=== PATIENT | female | born 1960 | race Caucasian/White ===

== ENCOUNTER 2022-07-13 11:59 | Emergency (ER) | payer MEDICAID, SELFPAY ==
[2022-07-13 12:05] VITALS: BP 158/92
[2022-07-13 12:08] VITALS: BP 158/92; PULSE 71; RESP 18; TEMP 35.9; O2SAT 97; BMI 30.2
--- NOTE | 2022-07-13 12:35 | ED_ITS ---
HPI - General Adult General Chief complaint: Neuro Symptoms/Altered Deficit Stated complaint: Nausea, left arm numb Time Seen by Provider: 07/13/22 12:18 History of Present Illness HPI narrative: This 61-year-old female comes in reporting a brief episode of some mild chest discomfort and tingling in her left arm and leg. This occurred while she was doing some light activity. She did not have any vomiting but did have some nausea. She does not report any lightheadedness or shortness of breath. She states that she has good exercise tolerance and has not had symptoms like this in the past. She does report however chronic problems with her neck and back and has had MRI and injections to treat this. She does report episodes of symptoms radiating down her legs occasionally. She does not report any recent injury event. As for cardiac risk factors she does not have any personal medical history but does report her father having heart attack and stroke at a younger age. He was a smoker. The patient herself did not want to come in but her daughter was insistent that she come in to be evaluated for these symptoms that occurred today. Related Data Allergies Allergy/AdvReac Type Severity Reaction Status Date / Time No Known Drug Allergies Allergy Verified 07/13/22 12:15 Review of Systems Status of ROS: Reports: 10 or more systems reviewed and unremarkable except as noted in History and below Narrative: Constitutional: No fevers, no weight gain or loss. Eyes: No discharge. No vision changes. HENT: No congestion, no sore throat, no ear pain. Cardiovascular: No palpitations. Brief chest discomfort as described above. Respiratory: No shortness of breath, no wheezes, no cough. Gastrointestinal: No abdominal pain, no vomiting, no diarrhea. She did have some nausea upon awakening this morning. Genitourinary: No dysuria, no hematuria. Musculoskeletal: Normal range of motion. Skin: No rashes, no pruritis. Neurological: No dizziness, weakness, sensory change, speech change. Endo/Heme/Allergies: No bruising or bleeding. No polydipsia. Pysch: no suicidality, no anxiety, no insomnia. All other systems reviewed and are negative. [facility] Social History Smoking Status: Never smoker Do you use any of these nicotine containing products: None Second hand tobacco smoke exposure: No How often do you have a drink containing alcohol: never How often do you have six or more drinks on one occasion: Never AUDIT-C Alcohol total score: 0 Non-prescribed substance use: denies use Exam Narrative: Exam Narrative: Constitutional: Well-developed, well-nourished, no acute distress. HEENT: Normocephalic, atraumatic. Neck: Normal range of motion. Nontender. Supple. Spurling's test is negative. Heart: Regular. No murmurs. Normal rate. Intact distal pulses. Lungs: Clear to auscultation. No chest discomfort. No wheezes, rhonchi, or rales. Abdomen: Normal bowel sounds. Nontender. No rebound tenderness. Genitalia: Deferred. Back: No midline tenderness. Normal range of motion. Extremities: Normal range of motion. No injury. Skin: Intact. No rash. Warm. No erythema or pallor. Neurologic: No altered sensation. No weakness. Alert and oriented. [employer] strength is equal bilaterally. No facial asymmetry. Pronator drift is negative. Hpundg-ck-jple is normal. Heel to castelan is normal. Spurling's test is negative. Psychiatric: No suicidality. No anxiety or depression. No insomnia. Nursing notes and vitals signs are reviewed. Const: Vital Signs, click to edit/add: Vital Signs - 24 hr 07/13/22 12:08 07/13/22 12:41 07/13/22 13:30 Temperature 96.7 F L Pulse Rate [Apical ] 71 62 Pulse Rate [Left R adial] 76 Respiratory Rate 18 Blood Pressure [Ri ght Upper Arm] 158/92 H 145/80 H Pulse Oximetry 97 97 Oxygen Delivery Me thod Room Air Room Air 07/13/22 12:05 07/13/22 12:40 07/13/22 13:00 Temperature Pulse Rate [Apical ] 71 73 Pulse Rate [Left R adial] Respiratory Rate Blood Pressure [Ri ght Upper Arm] 158/92 H 142/83 H 146/75 H Pulse Oximetry 96 98 Oxygen Delivery Me thod Room Air Room Air Course Vital Signs Vital signs: Initial Vital Signs Blood Pressure 158/92 H 07/13/22 12:05 Blood Pressure Mean 114 07/13/22 12:05 Blood Pressure Position Supine 07/13/22 12:05 Vital Signs Blood Pressure 158/92 H 07/13/22 12:05 Temperature 96.7 F L 07/13/22 12:08 Pulse Rate 62 07/13/22 13:30 Respiratory Rate 18 07/13/22 12:08 Blood Pressure 145/80 H 07/13/22 13:30 Pulse Oximetry 97 07/13/22 13:30 Oxygen Delivery Method 07/13/22 13:30 Medical Decision Making MDM Narrative Medical decision making narrative: This patient comes in reporting an episode of some left arm and leg discomfort that was more like tingling and some chest discomfort on the left side that occurred this morning about 4 hours prior to arrival. She did have some nausea but no vomiting, lightheadedness, shortness of breath, or diaphoresis. She does not have any exercise intolerance. These symptoms occurred while doing very light activity. Currently she feels back to normal in every way. She does have chronic back pain and neck pain and is planning to follow-up with a automotive parts specialist. A hearing her signs and symptoms and considering her risk factors it seems more likely that this is a neurologic or musculoskeletal issue. Her EKG today shows normal sinus rhythm without any ST or T-wave abnormalities. She also has reassuring lab results with a troponin that is 0. I did discuss further testing options for her it with regard to her heart. In a process of shared decision making the patient wishes to go home and will follow-up with her primary physician and consider a stress test if symptoms are recurrent or more prominent. Lab Data Labs: Lab Results 07/13/22 07/13/22 07/13/22 Range/Units 12:35 12:49 12:49 WBC 4.94 (4.50-11.00) K/uL RBC 4.23 (4.00-5.20) m/uL Hgb 11.7 L (12.0-16.0) gm/dL Hct 35.9 (33.0-51.0) % MCV 85 (80-100) fL MCH 28 (26-34) pg MCHC 33 (32-36) gm/dL RDW Coeff of Moy 13.1 (11.5-15.5) % Plt Count 319 (140-440) K/uL Neut % (Auto) 54.9 (42.0-72.0) % Lymph % (Auto) 31.8 (20-44) % Emanuel % (Auto) 9.5 (0.0-11.0) % Eos % (Auto) 3.0 (0.0-7.0) % Baso % (Auto) 0.6 (0.0-3.0) % Neut # (Auto) 2.71 (1.7-7.0) K/uL Lymph # (Auto) 1.57 (0.90-2.90) K/uL Emanuel # (Auto) 0.50 (0.00-0.90) K/UL Eos # (Auto) 0.15 (0.00-0.50) K/uL Baso # (Auto) 0.03 (0.00-0.30) K/uL Abs Immat Gran (auto) 0.01 (0.00-0.30) K/uL Sodium 138 (135-149) mmol/L Potassium 3.7 (3.6-5.1) mmol/L Chloride 107 (96-114) mmol/L Carbon Dioxide 27 (20-32) mmol/L BUN 16 (7-30) mg/dL Creatinine 0.7 (0.5-1.5) mg/dL Estimated Creat Clear 68.44 Estimated GFR 100 ml/min Glucose 92 (60-115) mg/dL Calcium 8.9 (8.4-10.6) mg/dL POC Troponin I 0.00 L (0.01-0.04) ng/ml ECG Data Attestation: I personally reviewed and interpreted this ECG as follows: Interpretation: Normal sinus rhythm. Rate is 71 beats per minute. There are no ST or T-wave abnormalities. Discharge Plan Discharge Clinical Impression: Atypical chest pain, Arm paresthesia, left Condition: Improved Instructions: Chest Pain (ED) Additional Instructions: Continue current plans. Follow up with MD and consider a stress test. Return if recurrent or worsening symptoms happen. Follow Up/Referrals: Jessica Bray MD [Primary Care Provider] - Stand Alone Forms: [employer] Info Instructions
[2022-07-13 12:40] VITALS: BP 142/83; PULSE 71; O2SAT 96
[2022-07-13 12:41] VITALS: PULSE 76
[2022-07-13 12:56] LABS: Basophils Absolute Auto 0.03 K/uL (0.00-0.30); Basophils Percent Auto 0.6 % (0.0-3.0); Eosinophils Absolute Auto 0.15 K/uL (0.00-0.50); Hematocrit 35.9 % (33.0-51.0); Hemoglobin* 11.7 gm/dL (12.0-16.0); Immature Granulocytes Abs Auto 0.01 K/uL (0.00-0.30); Lymphocytes Absolute Auto 1.57 K/uL (0.90-2.90); Lymphocytes Percent Auto 31.8 % (20-44); Mean Corpuscular HGB Conc 33 gm/dL (32-36); Mean Corpuscular Hemoglobin 28 pg (26-34); Mean Corpuscular Volume 85 fL (80-100); Monocytes Percent Auto 9.5 % (0.0-11.0); Neutrophils Absolute Auto 2.71 K/uL (1.7-7.0); Neutrophils Percent Auto 54.9 % (42.0-72.0); Platelet Count* 319 K/uL (140-440); RDW Coefficient of Variation % 13.1 % (11.5-15.5); Red Blood Count 4.23 m/uL (4.00-5.20); White Blood Count* 4.94 K/uL (4.50-11.00)
[2022-07-13 12:59] LABS: Slide Review Reflex No
[2022-07-13 13:00] VITALS: BP 146/75; PULSE 73; O2SAT 98
[2022-07-13 13:09] LABS: Chloride* 107 mmol/L (96-114); Potassium* 3.7 mmol/L (3.6-5.1); Sodium* 138 mmol/L (135-149)
[2022-07-13 13:11] LABS: Creatinine* 0.7 mg/dL (0.5-1.5); Est. Creatinine Clearance* 68.44; Estimated Glomerular Filt Rate 100 ml/min
[2022-07-13 13:12] LABS: Blood Urea Nitrogen* 16 mg/dL (7-30); Calcium* 8.9 mg/dL (8.4-10.6); Carbon Dioxide* 27 mmol/L (20-32); Glucose* 92 mg/dL (60-115)
[2022-07-13 13:30] VITALS: BP 145/80; PULSE 62; O2SAT 97
== END 2022-07-13 13:57 | disposition home or self-care (01) ==
PROVIDERS: Emergency Provider Emergency Medicine Emergency Medical Services; PCP Family Medicine
DX: R07.9 Chest pain, unspecified (principal); R20.2 Paresthesia of skin
CPT/HCPCS: 36415; 80048; 84484; 85025; 93005; 99284; 99285

== ENCOUNTER 2022-08-15 12:07 | Outpatient (CLI) | payer MEDICAID, SELFPAY ==
[2022-08-15 13:45] VITALS: BP 143/83; PULSE 79
--- NOTE | 2022-08-15 14:09 | PM.ST ---
Stress Test Note Date Time Seen by Provider: : Date Seen: 08/15/22 Date of test: 08/15/22 Providers Referring provider: Jessica Bray Primary care provider: Jessica Bray Stress test physician: Khushboo Bergman Stress Test Note Stress test ordered: Stress Echo Indication for test: Chest pain Stress test medicine: None Results discussion: Resting EKG: Sinus rhythm, 74 beats per minute, poor R-wave progression in the anterior precordial leads. Some baseline artifact particularly in 1, aVL, lead 3. Resting blood pressure: 157/79 Stress test: Patient was exercised on the treadmill following standard [place] protocol. Patient was able to exercise to 5 minutes 44 seconds before reaching maximal exercise tolerance. She denies any significant shortness of breath or chest pain but just could no longer exercise. She achieves 7.1 Mets. She exercised to a maximum heart rate of 148 beats per minute which was 108% of a calculated target heart rate of 136. No significant ischemic changes, no arrhythmia. Calculated rate pressure product was 23,584. Impression: Subjectively negative, objectively negative EKG portion of this stress test. Follow up suggested: Await echo images to couple this for a full formal diagnostic report. Patient was discharged from this stress test in stable condition.
== END 2022-08-15 12:08 | disposition home or self-care (01) ==
PROVIDERS: PCP Family Medicine; Visit Provider Family Medicine
DX: R07.89 Other chest pain (principal)
CPT/HCPCS: 93016; 93325; 93351

== ENCOUNTER 2022-08-23 09:33 | Outpatient (CLI) | payer MEDICAID, SELFPAY ==
[2022-08-23 10:47] LABS: Cholesterol* 256 mg/dL (90-199)
[2022-08-23 10:48] LABS: HDL Cholesterol* 65 mg/dL (>=50); LDL Cholesterol Calculated 165 mg/dL (<100); Triglycerides* 129 mg/dL (40-149)
[2022-08-23 11:24] LABS: Iron* 82 ug/dL (37-170)
[2022-08-23 11:25] LABS: Ferritin* 17.9 ng/mL (11.1-264.0)
[2022-08-23 11:33] LABS: Percent Iron Saturation 21 % (20-50); Total Iron Binding Capacity 399 ug/dL (265-497)
[2022-08-23 11:39] LABS: Vitamin B12* 411 pg/mL (243-894)
== END 2022-08-23 09:34 | disposition home or self-care (01) ==
PROVIDERS: PCP Family Medicine; Visit Provider Family Medicine
DX: Z01.419 Encounter for gynecological examination (general) (routine) without abnormal findings (principal); D64.9 Anemia, unspecified; E78.5 Hyperlipidemia, unspecified
CPT/HCPCS: 80061; 82607; 82728; 83540; 83550

== ENCOUNTER 2022-10-17 09:56 | Outpatient (CLI) | payer MEDICAID, SELFPAY | END 2022-10-17 09:57 | disposition home or self-care (01) | LOC: INJ CL 09:56 | PROVIDERS: PCP Family Medicine; Visit Provider Family Medicine | DX: M54.16 Radiculopathy, lumbar region (principal); M48.062 Spinal stenosis, lumbar region with neurogenic claudication; M51.36 Other intervertebral disc degeneration, lumbar region | CPT/HCPCS: 62323; J0702; Q9966 ==

== ENCOUNTER 2022-11-06 10:13 | Outpatient (CLI) | payer MEDICAID, SELFPAY ==
[2022-11-06 12:30] LABS: Cholesterol* 184 mg/dL (90-199); Triglycerides* 77 mg/dL (40-149)
[2022-11-06 12:31] LABS: HDL Cholesterol* 75 mg/dL (>=50); LDL Cholesterol Calculated 94 mg/dL (<100)
== END 2022-11-06 10:14 | disposition home or self-care (01) ==
LOC: NFLDREF 10:45
PROVIDERS: PCP Family Medicine; Visit Provider Family Medicine
DX: E78.5 Hyperlipidemia, unspecified (principal)
CPT/HCPCS: 80061

== ENCOUNTER 2023-08-17 09:00 | Outpatient (CLI) | payer MEDICAID, SELFPAY | END 2023-08-17 09:01 | disposition home or self-care (01) | LOC: NFLDREF 08-21 11:08 | PROVIDERS: PCP Family Medicine; Referring Provider Family Medicine; Visit Provider Family Medicine | DX: E78.5 Hyperlipidemia, unspecified (principal); E55.9 Vitamin D deficiency, unspecified; Z13.9 Encounter for screening, unspecified | CPT/HCPCS: 80053; 80061; 82306 ==

== ENCOUNTER 2023-09-21 10:13 | Outpatient (CLI) | payer MEDICAID, SELFPAY ==
--- NOTE | 2023-09-21 10:54 | W.ANESCHARGE ---
Anesthesia Charges Start Date/Time Anesthesia Start Date: 09/21/23 Anesthesia Start Time: 10:49 Stop Date/Time Anesthesia Stop Date: 09/21/23 Anesthesia Stop Time: 11:11
--- NOTE | 2023-09-21 11:14 | W.ANESCHARGE ---
Anesthesia Charges Start Date/Time Anesthesia Start Date: 09/21/23 Anesthesia Start Time: 10:49 Stop Date/Time Anesthesia Stop Date: 09/21/23 Anesthesia Stop Time: 11:11
== END 2023-09-21 10:14 | disposition home or self-care (01) ==
LOC: OP CLINIC 10:13
PROVIDERS: PCP Family Medicine; Visit Provider Internal Medicine
DX: Z12.11 Encounter for screening for malignant neoplasm of colon (principal); K64.8 Other hemorrhoids
CPT/HCPCS: 00811; 00812; 45378; J2704

== ENCOUNTER 2023-10-30 07:20 | Outpatient (CLI) | payer MEDICAID, SELFPAY | END 2023-10-30 07:21 | disposition home or self-care (01) | LOC: NFLDREF 07:21 | PROVIDERS: PCP Family Medicine; Visit Provider Family Medicine | DX: R30.0 Dysuria (principal) | CPT/HCPCS: 87086; 87186 ==

== ENCOUNTER 2023-10-31 08:45 | Outpatient (CLI) | payer MEDICAID, SELFPAY ==
--- NOTE | 2023-10-31 09:15 | CRLHL7_ITS ---
For Patients: As a result of the Cures Act, medical imaging exams and procedure reports are released immediately into your electronic medical record. You may view this report before your referring provider. If you have questions, please contact your health care provider. BILATERAL SCREENING MAMMOGRAM WITH COMPUTER-AIDED DETECTION AND TOMOSYNTHESIS TECHNIQUE: CC and MLO views were obtained. These mammographic images have been obtained using full-field digital technique. These mammographic images were interpreted with the benefit of computer-aided detection. Breast Tomosynthesis was used in this interpretation. COMPARISON FILM: 07/27/20, 11/15/18, 12/27/12. FINDINGS: The breasts are almost entirely fatty IMPRESSION: There is no radiographic evidence for malignancy. ASSESSMENT: BI-RADS Category 1: Negative RECOMMENDATION: Routine screening mammogram in 1 year. A lay language report of this examination will be provided to the patient. Manish Villarreal M.D. Diagnostic Radiologist [email or web address] Transcribed: 6:47 p.mBryan mock/Dictated by: Manish Villarreal MD @ 10/31/2023 10:13:00 AM (Electronically Signed)
== END 2023-10-31 08:46 | disposition home or self-care (01) ==
LOC: MAMMO 08:46
PROVIDERS: PCP Family Medicine; Visit Provider Family Medicine
DX: Z12.31 Encounter for screening mammogram for malignant neoplasm of breast (principal)
CPT/HCPCS: 77063; 77067

== ENCOUNTER 2024-02-25 08:25 | Outpatient (CLI) | payer MEDICAID, SELFPAY | END 2024-02-25 08:26 | disposition home or self-care (01) | LOC: NFLDREF 02-27 07:20 | PROVIDERS: PCP Family Medicine; Referring Provider Family Medicine; Visit Provider Family Medicine | DX: Z79.1 Long term (current) use of non-steroidal anti-inflammatories (NSAID) (principal) | CPT/HCPCS: 80053 ==

== ENCOUNTER 2024-03-11 07:38 | Outpatient (CLI) | payer MEDICAID, SELFPAY ==
--- OUTSIDE RECORDS SUMMARY | 2024-03-11 07:40 | XMS_ITS | Clinical Summary ---
Author Name Unknown Organization [facility] Address [place], [place] [address] Care Team Providers Care Tree Trimmer Name Role Phone Jessica Bray MD Primary Care Provider + Allergies No known active allergies Medications Medication Sig Dispensed Refills Start Date End Date Status ibuprofen (ADVIL; MOTRIN) 800 mg tablet Take 800 mg by mouth three times daily with meals. 0 02/22/2017 Active rosuvastatin (CRESTOR) 5 mg tablet Take 5 mg by mouth once daily with evening meal. Active acetaminophen (TYLENOL EXTRA STRGTH) 500 mg tabletIndications:D DD (degenerative disc disease), lumbar Take 2 Tablets (1,000 mg) by mouth every 6 hours. Max acetaminophen dose: 4000mg in 24 hrs. 30 Tablet 12/13/2022 Active methocarbamoL (ROBAXIN) 750 mg tabletIndications:D DD (degenerative disc disease), lumbar Take 1 Tablet (750 mg) by mouth every 6 hours if needed for Muscle Spasm. 30 Tablet 12/13/2022 Active polyethylene glycoL (MIRALAX) 17 gram/scoop powderIndications:D DD (degenerative disc disease), lumbar Measure 17g in the cap provided and dissolve completely in 8 ounces of liquid as directed and take by mouth or nasogastric tube once daily if needed for Constipation. 510 g 12/13/2022 Active WalkerIndications:D DD (degenerative disc disease), lumbar Walker with front wheels for home use for 3 months. 1 Each 12/13/2022 Active FLUoxetine (PROZAC) 40 mg capsuleIndications: Episode of recurrent major depressive disorder, unspecified depression episode severity (HC) Take 1 Capsule (40 mg) by mouth once daily in the afternoon. Afternoon / early evening 12/13/2022 Active HYDROcodone-acetami nophen (10-325 mg/tablet)Indicatio ns:Lumbar radiculopathy Take 1 Tablet by mouth 4 times daily if needed for Pain. Max acetaminophen 4000mg in 24 hours. 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 1 Tablet 03/07/2024 Active Active Problems Problem Noted Date Diagnosed Date Lumbar disc herniation 12/07/2023 Lumbar radiculopathy 12/07/2023 Spinal stenosis, lumbar region with neurogenic c laudication 12/07/2023 Trochanteric bursitis of right hip 12/07/2023 Status post lumbar spine sammy lila for decompression of spinal nerves 12/07/2023 Hyperlipidemia 12/12/2022 DDD (degenerative disc disease), lumbar 04/20/20 Overview: ~ March 2017: L4-L5 [place] epidural steroid injection by Dr. Nation. Urinary tract infection 07/15/2012 Overview: Per report, seen by urology 2011 Tendonitis of wrist, left 07/15/2012 Major depressive disorder, recurrent episode, un specified 09/21/2010 Resolved Problems Problem Noted Date Diagnosed Date Resolved Date Major depressive disorder, s ryan episode, unspecified 07/22/2007 11/27/2011 Encounters Date Type Department Care Team Description 03/07/2024 Telephone [facility] [address] [place] [address] Davion Nation MD [facility] Meds 02/27/2024 Transcribe Orders [facility] [address] [place] [address] Davion Nation MD 02/08/2024 9:40 AM CDT Office Visit [facility] [address] [place] [address] Davion Nation MD Musculoskeletal Problem (Follow up back and hip pain review MRIs and discuss options) 02/08/2024 Travel 02/02/2024 Nurse Triage [facility] [address] [place] [address] Pcp, No Medication Management 01/31/2024 Nurse Triage [facility] [address] [place] [address] Davion Nation MD Questions 01/30/2024 Telephone [facility] [address] [place] [address] Davion Nation MD Results 01/29/2024 6:53 AM PURCHASING ADMINISTRATOR - 01/29/2024 11:59 PM PURCHASING ADMINISTRATOR Hospital Encounter [facility] [address] [place] [address] Davion Nation MD Status post lumbar spine surgery for decompression of spinal nerves; Lumbar radiculopathy; Lumbar foraminal stenosis; Trochanteric bursitis of right hip; Chronic right hip pain 01/29/2024 Travel 01/25/2024 10:00 AM PURCHASING ADMINISTRATOR Office Visit [facility] [address] [place] [address] Davion Nation MD Musculoskeletal Problem (Follow up back and bilateral hip/leg pain ) 01/25/2024 Travel from Last 3 Months Immunizations Name Administration Dates Next Due Tuberculin (PPD) 06/08/2014,03/23/2014 Family History Medical History Relation Name Comments Other Brother back Surg at 60 yo Arthritis Father back pain. Relation Name Status Comments Brother Father Social History Tobacco Use Types Packs/Day Years Used Date Smoking Tobacco: Never Smokeless Tobacco: Never Tobacco Cessation:Counseling Given: Yes Alcohol Use Standard Drinks/Week Comments Yes 0 (1 standard drink = 0.6 oz pur e alcohol) rare drink Social Connections Answer Date Recorded Frequency of Communication with Friends and Fami ly Not on file 07/27/2022 Sex and Gender Information Value Date Recorded Sex Assigned at Not on file Gender Identity Not on file Sexual Orientation Not on file Obstetrics History Last Filed Vital Signs Vital Sign Reading Time Taken Comments Blood Pressure 129/85 02/08/2024 9:43 AM CDT Pulse 92 02/08/2024 9:43 AM CDT Temperature 36.7 ??C (98 ??F) 02/08/2024 9:43 AM CDT Respiratory Rate 16 12/13/2022 3:56 PM PURCHASING ADMINISTRATOR Oxygen Saturation 98% 02/08/2024 9:43 AM CDT Inhaled Oxygen Concentration - - Weight 73.1 kg (161 lb 3.2 oz) 12/12/2022 6:33 A M PURCHASING ADMINISTRATOR Height 157.5 cm (5' 2) 12/12/2022 6:33 AM PURCHASING ADMINISTRATOR Body Mass Index 29.48 12/12/2022 6:33 AM PURCHASING ADMINISTRATOR Plan of Treatment Upcoming Encounters Date Type Department Care Team (Late st Contact Info) Description 03/11/2024 8:00 AM CDT Office Visit [facility] [address] [place] [address] Davion Nation MD [address] [place] [address] Health Maintenance Due Date Last Done Comments Tdap 1973 Depression screening for age 12+ 1974 HIV for age 15-65 1977 Hepatitis C screening for age 18-79 1980 Tetanus booster 1982 Colonoscopy through age 75 2007 Lipids for age 45-75 2007 Mammogram for age 45-75 2007 Zoster (shingles) series for age 50+ (1 of 2) 2012 BMI (ht and wt on same day) for age 18+ 04/10/2018 04/10/2017 COVID-19 vaccine series ( season) 2023 Influenza for age 50-64 07/27/2024 Pap test for age 21-65 09/06/2025 2, 09/06/2022, 06/26/2017, Additional history exists Pneumococcal series for age 6-64 Aged Out No longer eligible based on patient's age to complete this topic Procedures Procedure Name Priority Date/Time Associated Diagnosis Comments MR SPINE LUMBAR WWO Routine 01/29/2024 8:33 AM PURCHASING ADMINISTRATOR Status post lumbar spine surgery for decompression of spinal nerves Lumbar radiculopathy Lumbar foraminal stenosis MR HIP RIGHT WO Routine 01/29/2024 8:29 AM PURCHASING ADMINISTRATOR Trochanteric bursitis of right hip Chronic right hip pain HPV THIN PREP Routine 09/06/2022 7:30 AM CDT from Last 3 Months or Most Recently Relevant to Health Maintenance Results * MR SPINE LUMBAR WWO (01/29/2024 8:33 AM PURCHASING ADMINISTRATOR) Anatomical Region Laterality Modality Spine, LUMBAR SPINE Magnetic Res onance Narrative 01/29/2024 1:12 PM PURCHASING ADMINISTRATOR Indication: Lumbar radiculopathy. ??History of spine surgery. Comparison: None. Technique: Lumbar spine MRI with contrast. Findings: Accentuated lumbar lordosis. ??Mild dextroconvex lumbar scoliosis with apex at L2-3. ??Slight rightward lateral thesis of L3 on L4. ??Postsurgical changes of L4-5/L5-S1 laminectomies and right L4-5 foraminotomies. ??Thick enhancing granulation tissue within the surgical bed. ??No organized fluid collections. ??No acute fracture or marrow replacing process. ??Lower cord/conus and cauda equina nerve roots are normal. Discs/endplates: Advanced disc height loss/disc desiccation and endplate remodeling at L1 to centrally/on the left as well as L4-5 on the right. ?? Moderate disc height loss/disc desiccation L1-2. ??Minimal disc degeneration elsewhere. ??Type I reactive/discectomy changes at L4-5 on the right. T11-12 and T12-L1: No spinal canal or neuroforaminal stenosis. L1-2: Mild bilobed disc bulge. ??Bilateral low-grade facet arthrosis. ??Mild left neuroforaminal stenosis. ??No right neuroforaminal stenosis or spinal canal stenosis. L2-3: 4 mm retrolisthesis. ??Moderate disc bulge with overlying osteophytic ridging, asymmetric to the left. ??Bilateral facet arthrosis, greater on the left. ??Mild right and moderate left neuroforaminal stenosis. ??Mild spinal canal stenosis. L3-4: 4 mm anterior listhesis. ??Moderate bilobed disc bulge, asymmetric to the left. ??Bilateral facet arthrosis. ??Mild to moderate spinal canal stenosis, mild right and mild to moderate left neuroforaminal stenosis. L4-5: Postop changes. ??Spinal canal decompressed dorsally. ??High-grade right facet arthrosis. ??Moderate disc bulge with overlying osteophytic ridging, asymmetric to the right. ??Enhancement about the margins of the right facet as well as within the right subarticular recess and right neural foramen, compatible with granulation tissue related to foraminotomy/discectomy. ??Encasement and potential irritation of the exiting right L4 nerve root and traversing right L5 nerve root. ??Mild left and moderate right neuroforaminal stenosis. L5-S1: Postop changes. ??Spinal canal decompressed dorsally. ??Enhancing granulation tissue within the ventral epidural space with encasement and potential irritation of the traversing S1 nerve roots. SI joints: Bilateral arthrosis. Impression: 1. ??Postsurgical changes of relatively recent L4-5/L5-S1 decompressive laminectomies as well as a right L4-5 foraminotomy/discectomy. ??The spinal canal is patent at the operative levels. ??Thick enhancing granulation tissue within the right L4-5 subarticular recess, neural foramen as well as within the L5-S1 ventral epidural space encases and potentially irritates the exiting right L4 nerve root, traversing right L5 nerve root and traversing bilateral S1 nerve roots. ??There is moderate right L4-5 neuroforaminal stenosis. 2. ??At L2-3, moderate left neuroforaminal stenosis. 3. ??At L3-4, mild to moderate spinal canal stenosis and mild to moderate left neuroforaminal stenosis. Davion Nation MD MR * MR HIP RIGHT WO (01/29/2024 8:29 AM PURCHASING ADMINISTRATOR) Anatomical Region Laterality Modality HIPR Magnetic Resonan ce Narrative 01/30/2024 9:37 AM PURCHASING ADMINISTRATOR Indication: Right hip pain. ??Concern for labral tear. ??Back pain. Comparison: None. Technique: Axial, coronal and sagittal PD fat-sat small field right hip sequences with coronal T1 and PD fat-sat and axial T1 large field pelvis sequences. Findings: Right hip: Anatomic alignment without fracture, bone lesion or avascular necrosis. ??Mild heterogeneous T2 signal and irregular grade 2 thinning of cartilage with no significant secondary degenerative finding appreciated. ?? Within limitations of a nonarthrogram study, no significant labral tear is appreciated. ??Normal variant posterior sulcus. ??Some mucoid intermediate signal in the superior labrum. ??No periarticular fluid collection. ??Intact gluteal tendons at the trochanteric insertion with some mild patchy intermediate signal expansion and some surrounding edema for minimal tendinosis. ??Thin line of fluid in the trochanteric bursa. ??Intact hamstring. Pelvis: No left hip fracture or bone lesion. ??Small subchondral cyst at the acetabular superior outer margin. ??Physiologic fluid. ??Scoliosis suggested in the spine center to the right above the [id number]. ??Mild degenerative disc height loss and desiccation most pronounced L4-5, asymmetric to the right. ??Sacroiliac joints and the symphysis pubis appear normal. Impression: Minor degenerative chondromalacia right hip. ??Mild tendinosis and suturing gluteal tendons. ??Trace trochanteric bursitis. Davion Nation MD MR * HPV HIGH RISK (09/06/2022 7:30 AM CDT) TYPE 16 Negative Negative 09/08/2022 2:02 PM CDT [facility] TYPE 18 Negative Negative 09/08/2022 2:02 PM CDT [facility] OTHER HIGH RISK TYPES Negative Negative 09/08/2022 2:02 PM CDT [facility] Other (Cervical/Vagina l) 09/06/2022 7:30 AM CDT 09/07/2022 9:04 AM CDT Narrative [facility] - 09/08/2022 2:02 PM CDT HPV types 16, 18, 31, 33, 35, 39, 45, 51, 52, 56, 58, 59, 66 and 68 DNA were undetectable or below the pre-set threshold. Methodology: Libra Maia 4800 HPV Test Jessica Bray MD MICROBIOLOGY [facility] [address] [place] [address], from Last 3 Months or Most Recently Relevant to Health Maintenance Advance Directives Documents on File Type Date Recorded Patient Senior Bi Developer Expl anation Healthcare Directive 12/08/2022 023 * Full Code (Latest Code Status on File) Date Activated Date Inactivated Comments 12/12/2022 12:56 PM 12/13/2022 9:47 PM Question Answer Comments Code Status Discussion: Unable to Assess Preferences, Provider to review later * Full Code Date Activated Date Inactivated Comments 06/16/2015 8:00 AM 06/16/2015 10:57 AM * Full Code Date Activated Date Inactivated Comments 06/16/2015 6:32 AM 06/16/2015 8:00 AM Care Teams Tree Trimmer Relationship Specialty Start Date End Date Jessica Bray MD [address] [place] [address] PCP - General Family Practice 07/27/22
== END 2024-03-11 07:39 | disposition home or self-care (01) ==
LOC: INJ CL 07:38
PROVIDERS: PCP Family Medicine; Visit Provider Family Medicine
DX: M54.16 Radiculopathy, lumbar region (principal); M51.36 Other intervertebral disc degeneration, lumbar region
CPT/HCPCS: 64483; J1100; Q9966

== ENCOUNTER 2024-08-28 07:45 | Outpatient (CLI) | payer MEDICAID, SELFPAY ==
--- OUTSIDE RECORDS SUMMARY | 2024-08-29 08:59 | XMS_ITS | Continuity of Care Document ---
Author Organization [facility] Address [address] [place] [address] Phone Care Team Providers Care Photography Intern Name Role Phone Clarence GIL, PhD, [place] Unavailable Unavai lable Allergies, Adverse Reactions, Alerts Substance Reaction Status Criticality No Known Allergies Active No Inform ation Medications Medication Instructions Dosage Effective Dates (start - stop) Status Comments Medrol (Presley) 4 mg tablets in a dose pack take by Oral route as directed per package instructions - Active HYDROCODONE-ACETAMIN OPHEN (unknown strength) Not Available - Active ROSUVASTATIN CALCIUM (unknown strength) Not Available - Active IBUPROFEN (unknown strength) Not Available - Active FLUOXETINE HCL (unknown strength) Not Available - Active Procedures Procedure Date Postop Followup Visit TLIF - Includes PSF at the same level - PA HUFFMAN FACETC/FRMT ARTHRD LUM 1 Lami, Facetectomy/Foraminotomy, Lumbar ( Stenosis) Posterior Instrumentation, Non-segmental - PA PEEK/ Cage/ Implant, For Interbody Fusio n - PA Autograft, From Same Incision Pa Assist TLIF - Includes PSF at the same level Au HUFFMAN FACETC/FRMT ARTHRD LUM 1 Lami, Facetectomy/Foraminotomy, Lumbar ( Stenosis) Posterior Instrumentation, Non-segmental PEEK/ Cage/ Implant, For Interbody Fusio n Allograft, Morcelized, and/or BMP Autograft, From Same Incision Office/Outpatient Visit,Est, Mod 2023 Office/Outpatient Visit,Est, Mod 2023 Office/Outpatient Visit,Est, Mod 2023 Office/Outpatient Visit,Est, Low 2022 POSTOP FOLLOW-UP VISIT Telephone 2022 Postop Followup Visit Postop Followup Visit Lami, Facetectomy/Foraminotomy, Lumbar ( Stenosis) Lami, Facetectomy/Foraminotomy - Additio nal Level(s) OFFICE/OUTPATIENT VISIT EST Phone Office/Outpatient Visit,New, Mod 2021 Office/Outpatient Visit,New, Mod 2018 Advance Directives Directive Yes / No Effective Date File Name No Information Encounters Encounter Description Practice Location Reason(s) For Visit Diagnoses Date Provider Providers Copied on Encounter [facility], [address], [place], [id number], [place] tel:[phone] [facility] Encounter for other specified surgical aftercare 4 Clarence Rose. [facility], [address], [place], [address], [place]. tel:[phone] Referring Provider: Davion Zaldivar, [employer], [address]. tel:[phone] [facility], [address], [place], [id number], [place] tel:[phone] [facility] No Information 4 Clarence Rose. [facility], [address], [facility] [place], [address], [place]. tel:[phone] [facility], [address], [place], [id number], [place] tel:[phone] [facility] No Information 4 Harpal Sinclair. [facility], [address], [facility], [id number] , [place]. [phone] Referring Provider: Davion Zaldivar, [employer] [address], [place], [address]. tel:[phone] [facility], [address], [place], [id number], [place] tel:[phone] [facility] No Information 4 Clarence Rose. [facility], [address], [place], [address], [place]. [phone] Referring Provider: Davion Zaldivar, [employer] [address], [place], [address]. tel:[phone] Office/Outpat ient Visit,Est, Mod [facility], [address], [place], [id number], [place] tel:[phone] [facility] Spinal stenosis, lumbar region with neurogenic claudication 4 Clarence Rose. [facility], [address], [place], [address], [place]. [phone] Referring Provider: Davion Zaldivar, [employer] [address], [place], [address]. tel:[phone] Office/Outpat ient Visit,Est, Mod [facility], [address], [place], [place], [id number], [place] tel:[phone] [facility] Spinal stenosis, lumbar region with neurogenic claudication 4 Clarence Rose. [facility], [address], [place], [address], [place]. tel:[phone] Referring Provider: Daivon Zaldivar, [employer] [address], [place], [address]. tel:[phone] Office/Outpat ient Visit,Est, Mod [facility], [address], [place], [id number], [place] tel:[phone] [facility] Spinal stenosis, lumbar region with neurogenic claudication 4 Clarence [place]. [facility], [address], [place], [address], [place]. tel: [phone] Referring Provider: Davion Zaldivar, [employer] [address] [facility], [place], [address]. tel:[phone] Office/Outpat ient Visit,Est, Low [facility], [address], [place], [id number], [place] tel:[phone] [facility] Low back pain 3 Clarence Rose. [facility], [address], [place], [address], [place]. tel:[phone] Referring Provider: Davion Zaldivar [employer] [address] [facility], [place], [address]. tel:[phone] [facility], [address], [place], [place], [id number], [place] tel:[phone] [facility] No Information 3 Lima [place]. [facility], [address], [place], [address], [place]. tel:[phone] Referring Provider: [employer]sey [employer] [address] [facility], [place], [address]. tel:[phone] [facility], [address], [place], [id number], [place] tel:[phone] [facility] No Information 3 Clarence [place]. [facility], [address], [place], [address], [place]. tel:[phone] Referring Provider: Davion Zaldivar [employer] [address] [facility], [place], [address]. tel:[phone] [facility], [address], [place], [id number], [place] tel:[phone] [facility] No Information 3 Harpal Sinclair. [facility], [address], [place], [id number] , [place]. tel:[phone] Referring Provider: Davion Zaldivar, [employer] [address], [place], [address]. tel:[phone] [facility], [address], [place], [id number], [place] tel:[phone] [facility] No Information 3 Clarence Rose. [facility], [address], [place], [address], [place]. tel:[phone] Referring Provider: [employer] [address], [place], [address]. tel:[phone] OFFICE/OUTPAT IENT VISIT EST Phone [facility], [address], [place], [place], [id number], [place] tel:[phone] [facility] No Information 2 Clarence Rose. [facility], [address], [place], [address], [place]. tel:[phone] Referring Provider: [employer] [address], [place], [address]. tel:[phone] Office/Outpat ient Visit,New, Mod [facility], [address], [place], [id number], [place] tel:[phone] [facility] Spinal stenosis, lumbar region with neurogenic claudication 2 Clarence Rose. [facility], [address], [place], [address], [place]. tel:[phone] Ref[facility]: [facility] [address], [place], [address]. tel:[phone] Office/Outpat ient Visit,New, Dejan [facility], [address], [place], [id number], [place] tel:[phone] [facility] Spinal stenosis of lumbosacral region 9 Harpal Yahir. [facility], [address], [place], [place], [id number] , [place]. tel:[phone] Referring Provider: Jessica Cowan, [facility] [address] [place], [address]. tel:[phone] [facility], [address], [place], [id number], [place] tel:[phone] [facility] Low back pain 9 Clarence Rose. [facility], [address], [place], [address], [place]. tel:[phone] Family History Family Member Type Diagnosis Age At Onset No Information Payers Payer name Insurance type Covered libertarian ID Sam samuellelia(s) Екатеринаmartha [facility] 2021 CI [id number] Social History Type Description Quantity Date Captured Comments Alcohol Use Details Unknown Caffeine Use Details Unknown Tobacco Use Status Current non-smoker Smoking Status Never smoker Non-Smoking Tobacco Use Details : No Details Available : No Details Available Sex Female Vital Signs Date / Time: Height Weight BMI Pulse Rate Blood Pressure Temperature Respiratory Rate Body Surface Area Head Circumference Head Circ. Percentile Wt./William. Percentile BMI percentile Pulse Ox Inhaled Ox 11:10 AM 61.81 in 70.307 kg (155.00 lbs) 28.5 2 kg/m eter (2) Chief Complaint And Reason For Visit No Information Reason For Referral Reason For Referral No Information Plan Of Treatment Date Type Action Status Appointment Karin Cummins BOOKED Appointment Karin Cummins BOOKED Future Order: Radiology Order Me dial Branch Block Lumbar ([id number]), Ordered on: Ordered History Of Present Illness Encounter Date Complaint History Of Prese nt Illness No Information Functional Status Date Functional Assessmen t No Information Instructions Date Instruction Additional Infor mation No Information Assessments Type Assessment Date assessment Encounter for other specified devine rgical aftercare Patient Care Teams Name Effective Dates (start - stop) Status Members No Information
--- OUTSIDE RECORDS SUMMARY | 2024-08-29 09:00 | XMS_ITS | Clinical Summary ---
Author Organization [facility] Address [place], [place] [address] Care Team Providers Care Guest Room Attendant Name Role Phone Jessica Bray MD Primary Care Provider + Allergies No known active allergies Medications Medication Sig Dispensed Refills Start Date End Date Status rosuvastatin (CRESTOR) 5 mg tablet Take 5 mg by mouth once daily with evening meal. Active FLUoxetine (PROZAC) 40 mg capsuleIndications :Episode of recurrent major depressive disorder, unspecified depression episode severity (HC) Take 1 Capsule (40 mg) by mouth once daily in the afternoon. Afternoon / early evening 12/13/2022 Active Cholecalciferol, Vitamin D3, (Vitamin D-3) 400 unit capsule Take 400 units by mouth once daily. Active calcium carbonate CHEWABLE (Calcium Antacid) 400 mg calcium (1,000 mg) chew Chew 1,000 mg by mouth once daily. Active acetaminophen (TYLENOL EXTRA STRGTH) 500 mg tabletIndications: Acute post-operative pain Take 2 Tablets (1,000 mg) by mouth every 6 hours if needed for Pain. Max acetaminophen dose: 4000mg in 24 hrs. 07/10/2024 Active oxyCODONE (ROXICODONE) 5 mg immediate release tabletIndications: Acute post-operative pain Take 1-2 Tablets (5-10 mg) by mouth every 4 hours if needed for severe pain. 45 Tablet 07/10/2024 Active sennosides-docusat e (SENOKOT S) (8.6-50 mg) tabletIndications: Acute post-operative pain Take 1-4 Tablets by mouth two times daily. 30 Tablet 07/10/2024 Active methocarbamoL (ROBAXIN) 500 mg tabletIndications: Acute post-operative pain Take 1 Tablet (500 mg) by mouth every 6 hours. 30 Tablet 07/10/2024 Active lidocaine 4 % topical patchIndications:A cute post-operative pain Apply one layer to intact skin to cover most painful area for max 12hr per 24hr period. Do not put on incision- this can lead to infection. 14 Patch 07/11/2024 Active WalkerIndications: Spondylolisthesis of lumbar region Walker with front wheels for home use for 3 months. 1 Each 07/10/2024 Active Active Problems Problem Noted Date Diagnosed Date Spondylolisthesis of lumbar region 07/08/2024 Lumbar disc herniation 12/07/2023 Lumbar radiculopathy 12/07/2023 Spinal stenosis, lumbar region with neurogenic c laudication 12/07/2023 Trochanteric bursitis of right hip 12/07/2023 Status post lumbar spine sammy lila for decompression of spinal nerves 12/07/2023 Hyperlipidemia 12/12/2022 DDD (degenerative disc disease), lumbar 04/20/20 Overview (04/20/2017): ~ March 2017: L4-L5 [place] epidural steroid injection by Dr. Nation. Urinary tract infection 07/15/2012 Overview (07/15/2012): Per report, seen by urology 2011 Tendonitis of wrist, left 07/15/2012 Major depressive disorder, recurrent episode, un specified 09/21/2010 Resolved Problems Problem Noted Date Diagnosed Date Resolved Date Major depressive disorder, s ryan episode, unspecified 07/22/2007 11/27/2011 Encounters Date Type Department Care Team Description 07/08/2024 10:51 AM CDT Anesthesia Event [facility] [address] [place] [address] Antolin Todd MD Desa, Tenzin, MD 07/08/2024 9:00 AM CDT - 07/08/2024 2:06 PM CDT Surgery [facility] [address] [place] [address] Milton Lima MD Posterior Spine Fusion L4 to: L5 Transforaminal Lumbar Interbody Fusion L4 to: L5 Decompression - Revision L4 to: L5 Right Decompression - Lateral recess L3 to: L4 Right Instrumentation and Bone Graft Autograft, allograft 07/08/2024 7:13 AM CDT - 07/10/2024 4:30 PM CDT Hospital Encounter [facility] [address] [place] [address] Milton Lima MD Acute post-operative pain (Primary Dx); Spondylolisthesis of lumbar region Discharge Disposition: Home Self Care 07/07/2024 Travel from Last 3 Months Immunizations Name [...] of Communication with Friends and Fami ly 0 07/10/2024 Financial Resource Strain Answer Date R ecorded Difficulty of Paying Living Expenses 3 07/10/2024 Difficulty of Paying Living Expenses Not on file 07/10/2024 Food Insecurity Answer Date Recorded Worried About Running Out of Food in the Last Ye ar 1 07/10/2024 Transportation Needs Answer Date Record ed Lack of Transportation (Medical) 1 07/10/2024 Housing Stability Answer Date Recorded Unable to Pay for Housing in the Last Year 1 07/10/2024 Sex and Gender Information Value Date Recorded Sex Assigned at Not on file Gender Identity Not on file Sexual Orientation Not on file Obstetrics History Last Filed Vital Signs Vital Sign Reading Time Taken Comments Blood Pressure 137/74 07/10/2024 8:51 AM CDT Pulse 85 07/10/2024 8:51 AM CDT Temperature 36.6 ??C (97.9 ??F) 07/10/2024 8:51 AM CD T Respiratory Rate 16 07/10/2024 8:51 AM CDT Oxygen Saturation 99% 07/10/2024 8:51 AM CDT Inhaled Oxygen Concentration - - Weight 75.3 kg (166 lb) 07/08/2024 8:15 AM CDT Height 157.5 cm (5' 2) 07/08/2024 8:15 AM CDT Body Mass Index 30.36 07/08/2024 8:15 AM CDT Plan of Treatment Health Maintenance Due Date Last Done Comments [...] age 18+ 04/10/2018 04/10/2017 COVID-19 vaccine series (2023- season) 2024 Influenza for age 50-64 07/27/2024 Pap test for age 21-65 09/06/2025 2, 09/06/2022, 06/26/2017, Additional history exists Pneumococcal series for age 6-64 Aged Out No longer eligible based on patient's age to complete this topic Medical Devices Implanted Type Area Industrial Coffee Grinder Device Identifier Shelf Expiration Date Model / Serial / Lot Bone 1-4mm 60cc Medtronic Fine Canclls Freeze Dried - [id number] Implanted:Qty: 1 on 07/08/2024 by Milton Lima MD at [facility] Medtronic Spine/Ortho [id number] 06/14/2028 [id number] / [id number] / Spacer Lmbr 9x22mm Capstone Tlif Titnm Coating - [id number] Implanted:Qty: 1 on 07/08/2024 by Milton Lima MD at [facility] N/A: Spine Medtronic Spine/Ortho [id number] / / 10PM Set Screw Lmbr Ant 5.5mm Solera Break Off - [id number] Implanted:Qty: 4 on 07/08/2024 by Milton Lima MD at [facility] N/A: Spine Medtronic Spine/Ortho [id number] / / Derek Lmbr 30x5.5mm Solera 5.5/6 Cvd Titnm - [id number] Implanted:Qty: 2 on 07/08/2024 by Milton Lima MD at [facility] N/A: Spine Medtronic Spine/Ortho [id number] / / Screw Lmbr Post 6.5x45mm Solera 5.5/6 Va Cocr - [id number] Implanted:Qty: 2 on 07/08/2024 by Milton Lima MD at [facility] N/A: Spine Medtronic Spine/Ortho [id number] / / Screw Lmbr Post 6.5x50mm Solera 5.5/6 Va Cocr - [id number] Implanted:Qty: 2 on 07/08/2024 by Milton Lima MD at [facility] N/A: Spine Medtronic Spine/Ortho [id number] / / Procedures Procedure Name Priority Date/Time Associated Diagnosis Comments HEMOGLOBIN Early AM 07/10/2024 7:29 AM CDT XR SPINE LUMBAR 2 VIEWS Routine 07/09/2024 9:11 AM CDT CREATININE Early AM 07/09/2024 6:51 AM CDT POTASSIUM Early AM 07/09/2024 6:51 AM CDT SODIUM Early AM 07/09/2024 6:51 AM CDT HEMOGLOBIN Early AM 07/09/2024 6:51 AM CDT XR C-ARM EQUAL OR GREATER 2 HR Routine 07/08/2024 1:54 PM CDT XR SPINE LUMBAR 2 VIEWS PORTABLE Routine 07/08/2024 1:53 PM CDT ENDOTRACHEAL TUBE Routine 07/08/2024 11:05 AM CDT ENDOTRACHEAL TUBE Routine 07/08/2024 11:05 AM CDT FUSION TRANSFORAMINAL SPINAL INTERBODY LEVEL 1 Elective 07/08/2024 10:17 AM CDT 1) Stenosis, Lumbar - w/Neurogenic Claudication M48.0622) Spondylolisthesis , Lumbar M43.16 Case Notes C_ArmInsert Loja CatheterJackson / Combo Solera 5.5Capstone PTCMR GLUCOSE METER Timed 07/08/2024 8:25 AM CDT SCAN-CARDIAC STRIP 07/08/2024 12:00 AM CDT HPV HIGH RISK Routine 09/06/2022 7:30 AM CDT from Last 3 Months or Most Recently Relevant to Health Maintenance Results * (ABNORMAL) Hemoglobin - In AM (07/10/2024 7:29 AM CDT) Only the most recent of2 resultswithin the time period is included. HEMOGLOBIN 11.4(L) 12.0 - 16.0 g/dL 07/10/2024 7:51 AM CDT [facility] MCV 84 80 - 100 fL 07/10/2024 7:51 AM CDT [facility] Blood BLOOD SPECIMEN / Unknown Venipuncture / Unknown 07/10/2024 7:29 AM CDT 07/10/2024 7:42 AM CDT Narrative [facility] - 07/10/2024 7:51 AM CDT Call surgeon if Hemoglobin is less than 9. Yahir LACY HEMATOLOGY [facility] [address] [place] [address], * XR SPINE LUMBAR 2 VIEWS (07/09/2024 9:11 AM CDT) Anatomical Region Laterality Modality LUMBAR SPINE Digital Radiogra phy 07/09/2024 9:19 AM CDT Impressions 07/09/2024 9:19 AM CDT Postoperative radiographs of the lumbar spine. No complication seen. Dictated by Philly Davidson MD @ Jul 09 2024 ??9:19AM (Electronically Signed) [email or web address] Narrative 07/09/2024 9:19 AM CDT For Patients: ??As a result of the Cures Act, medical imaging exams and procedure reports are released immediately into your electronic medical record. ??You may view this report before your referring provider. ??If you have questions, please contact your health care provider. INDICATION: Postop evaluation COMPARISON: Lumbar spine MRI 01/29/2024 TECHNIQUE: Two view lumbar spine. AP and lateral. FINDINGS: L4-5 posterior instrumented fusion with bilateral pedicle screws and paired vertical rods. There is an interbody device to the right side of the disc space. Amorphous bone graft material on the right at the posterior elements. Operative level hemilaminectomy. Expected postoperative appearance of the soft tissues. Lumbar dextrocurvature with a rotational component. Procedure Note Philly Davidson MD - 07/09/2024 For Patients: As a result of the Cures Act, medical imagingexams and procedure reports are released immediately into your electronicmedical record. You may view this report before your referring provider.If you have questions, please contact your health care provider. INDICATION: Postop evaluation COMPARISON: Lumbar spine MRI 01/29/2024 TECHNIQUE: Two view lumbar spine. AP and lateral. FINDINGS: L4-5 posterior instrumented fusion with bilateral pedicle screws andpaired vertical rods. There is an interbody device to the right side ofthe disc space. Amorphous bone graft material on the right at theposterior elements. Operative level hemilaminectomy. Expectedpostoperative appearance of the soft tissues. Lumbar dextrocurvature witha rotational component. IMPRESSION: Postoperative radiographs of the lumbar spine. No complication seen. Dictated by Phlily Davidson MD @ Jul 09 2024 9:19AM (Electronically Signed) [email or web address] Yahir LACY GENERAL IMAGING * SODIUM (07/09/2024 6:51 AM CDT) SODIUM 136 136 - 145 mmol/L 07/09/2024 7:33 AM CDT [facility] Blood BLOOD SPECIMEN / Unknown Venipuncture / Unknown 07/09/2024 6:51 AM CDT 07/09/2024 7:05 AM CDT Bernard Bergman MD CHEMISTRY [facility] [address] [place] [id number], [place] * POTASSIUM (07/09/2024 6:51 AM CDT) POTASSIUM 3.8 3.5 - 5.1 mmol/L 07/09/2024 7:33 AM CDT [facility] Blood BLOOD SPECIMEN / Unknown Venipuncture / Unknown 07/09/2024 6:51 AM CDT 07/09/2024 7:05 AM CDT Bernard Bergman MD CHEMISTRY Performing Organization Address [facility] Co de Phone Number [facility] [address] [place] [phone], [place] * (ABNORMAL) CREATININE (07/09/2024 6:51 AM CDT) eGFR 80(L) >90 mL/min/1.7 3m2 07/09/2024 7:33 AM CDT [facility] Comment:As of 2022, eG FR is calculated by the CKD-EPI creatinine equation without race adjustment. ??eGFR can be influenced by muscle mass, exercise, and diet. ??The reported eGFR is an estimation only and is only applicable if the renal function is stable. CREATININE 0.83 0.50 - 0.90 mg/dL 07/09/2024 7:33 AM CDT [facility] Blood BLOOD SPECIMEN / Unknown Venipuncture / Unknown 07/09/2024 6:51 AM CDT 07/09/2024 7:05 AM CDT Bernard Bergman MD CHEMISTRY Performing Organization Address City/[facility]/ZIP Co de Phone Number [facility] [address] [place] [id number], [place] * XR C-ARM EQUAL OR GREATER 2 HR (07/08/2024 1:54 PM CDT) Anatomical Region Laterality Modality Other Narrative 07/08/2024 11:24 AM CDT 25 seconds fluoroscopy time was provided. ??See operative/procedure report for further information. Milton Lima MD FLUOROSCOPY * XR SPINE LUMBAR 2 VIEWS PORTABLE (07/08/2024 1:53 PM CDT) Anatomical Region Laterality Modality Spine, LUMBAR SPINE Digital Radi ography 07/08/2024 3:10 PM CDT Narrative 07/08/2024 3:10 PM CDT For Patients: ??As a result of the Cures Act, medical imaging exams and procedure reports are released immediately into your electronic medical record. ??You may view this report before your referring provider. ??If you have questions, please contact your health care provider. Indication: Spine surgery Technique: Portable AP and cross-table lateral digital spot radiographs of the lower lumbar spine are acquired between 1136 and 1340 hours. Comparison: None Findings: The initial image at 1136 hours shows a probe projected over the posterior elements of L4, and directed towards the posterior aspect of the mid L4 vertebral body. Subsequent images show placement of an interbody spacer at L4-5. Bilateral pedicle screws and posterolateral fixation rods have also been placed at this level. Alignment remains anatomic. Impression: 1. Localization of L4. 2. Documentation of interbody and posterolateral fusion at L4-5. Dictated by Syed Alvarez MD @ Jul 08 2024 ??3:10PM (Electronically Signed) Neuroradiologist [email or web address] Procedure Note Syed Alvarez MD - 07/08/2024 For Patients: As a result of the Cures Act, medical imagingexams and procedure reports are released immediately into your electronicmedical record. You may view this report before your referring provider.If you have questions, please contact your health care provider. Indication: Spine surgery Technique: Portable AP and cross-table lateral digital spot radiographs of the lowerlumbar spine are acquired between 1136 and 1340 hours. Comparison: None Findings: The initial image at 1136 hours shows a probe projected over the posteriorelements of L4, and directed towards the posterior aspect of the mid [id number] body. Subsequent images show placement of an interbody spacer at L4-5. Bilateralpedicle screws and posterolateral fixation rods have also been placed atthis level. Alignment remains anatomic. Impression: 1. Localization of L4. 2. Documentation of interbody and posterolateral fusion at L4-5. Dictated by Syed Alvarez MD @ Jul 08 2024 3:10PM (Electronically Signed) Neuroradiologist [email or web address] Milton Lima MD GENERAL IMAGING * HCHG TUBE PR1, HCHG STYLET PR1 (07/08/2024 11:05 AM CDT) Narrative Lisa Love CRNA - 07/08/2024 11:05 AM CDT Lisa Love CRNA ? 07/08/2024 11:06 AM Procedure: ETT Patient location during procedure: OR ETT Properties Mask Ventilation: easy Final Technique: direct laryngoscopy Type: straight Location: oral Cuffed: yes Tube Size: 7.0 mm Stylet: yes Laryngoscope Blade: Mac Blade Size: 3 Cormack-Lehane Grade View: 1 Insertion Attempts: 1 Placement Verification: auscultation and symmetrical chest wall movement Assessment: pharynx clear, atraumatic and dentition unchanged Secured at: 22 Measured From: lips Bite Block: soft Difficulty: 0 (not difficult) Difficulty Comment: small mouth Antolin Todd MD ANESTHESIA PX NOTE O RDERABLES * GLUCOSE METER (07/08/2024 8:25 AM CDT) GLUCOSE METER 93 65 - 100 mg/dL 07/08/2024 8:26 AM CDT [facility] Blood BLOOD SPECIMEN / Unknown 07/08/2024 8:25 AM CDT 07/08/2024 8:26 AM CDT Milton Lima MD CHEMISTRY [facility] [address] [place] [id number] * SCAN-CARDIAC STRIP (07/08/2024 12:00 AM CDT) Narrative 07/08/2024 12:00 AM CDT Ordered by an unspecified provider. Other Clinical Staff OTHER * HPV HIGH RISK (09/06/2022 7:30 AM CDT) TYPE 16 Negative Negative 09/08/2022 2:02 PM CDT [facility] TYPE 18 Negative Negative 09/08/2022 2:02 PM CDT [facility] OTHER HIGH RISK TYPES Negative Negative 09/08/2022 2:02 PM CDT [facility] Other (Cervical/Vagina l) 09/06/2022 7:30 AM CDT 09/07/2022 9:04 AM CDT [facility]ative [facility] - 09/08/2022 2:02 PM CDT HPV types 16, 18, 31, 33, 35, 39, 45, 51, 52, 56, 58, 59, 66 and 68 DNA were undetectable or below the pre-set threshold. Methodology: Libra Maia 4800 HPV Test Jessica Bray MD MICROBIOLOGY [facility] 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 anation Healthcare Directive 12/08/2022 023 * Full Code (Latest Code Status on File) Date Activated Date Inactivated Comments 07/08/2024 4:34 PM 07/10/2024 7:24 PM Question Answer Comments Code Status Discussion: Other * Full Code Date Activated Date Inactivated Comments 07/08/2024 7:58 AM 07/08/2024 4:34 PM Question Answer Comments Code Status Discussion: Unable to Assess Preferences, Provider to review later * Full Code Date Activated Date Inactivated Comments 12/12/2022 12:56 PM 12/13/2022 9:47 PM Question Answer Comments Code Status Discussion: Unable to Assess Preferences, Provider to review later * Full Code Date Activated Date Inactivated Comments 06/16/2015 8:00 AM 06/16/2015 10:57 AM * Full Code Date Activated Date Inactivated Comments 06/16/2015 6:32 AM 06/16/2015 8:00 AM Care Teams Guest Room Attendant Relationship Specialty Start Date End Date Jessica Bray MD [address] [place] [address] PCP - General Family Practice 07/27/22
== END 2024-08-28 07:46 | disposition home or self-care (01) ==
LOC: NFLDREF 08-29 08:56
PROVIDERS: PCP Family Medicine; Referring Provider Family Medicine; Visit Provider Family Medicine
DX: Z01.419 Encounter for gynecological examination (general) (routine) without abnormal findings (principal); E78.5 Hyperlipidemia, unspecified; Z79.1 Long term (current) use of non-steroidal anti-inflammatories (NSAID); E55.9 Vitamin D deficiency, unspecified; M85.80 Other specified disorders of bone density and structure, unspecified site
CPT/HCPCS: 80053; 80061; 82306

== ENCOUNTER 2024-10-22 14:28 | Outpatient (CLI) | payer MEDICAID, SELFPAY ==
--- OUTSIDE RECORDS SUMMARY | 2024-10-23 19:32 | XMS_ITS | Clinical Summary ---
Author Organization [email or web address] [facility] Address [place], [place] [address] Care Team Providers Care Cigar Sorter Name Role Phone Jessica Bray MD Primary [...] disorder, s ryan episode, unspecified 07/22/2007 11/27/2011 Immunizations Name Administration Dates Next Due Tuberculin [...] rare drink Social Connections Answer Date Recorded Do you often feel lonely or isolated from those around you? 0 07/10/2024 Financial Resource Strain Answer Date R ecorded Difficulty of Paying Living Expenses 3 07/10/2024 Difficulty of Paying Living Expenses Not on file 07/10/2024 Food Insecurity Answer Date Recorded Do you worry your food will run out before you are able to buy more? 1 07/10/2024 Transportation Needs Answer Date Record ed Does lack of transportation keep you from medica l appointments? 1 07/10/2024 Does lack of transportation keep you from work, meetings or getting things that you need? 1 07/10/2024 Housing Stability Answer Date Recorded What is your housing situation today? 1 07/10/2024 Sex and Gender Information Value Date Recorded Sex Assigned at Not on file Gender Identity Not on file Sexual Orientation Not on file Obstetrics History Last Filed Vital Signs Vital Sign Reading Time Taken Comments Blood Pressure 137/74 07/10/2024 8:51 AM CDT Pulse 85 07/10/2024 8:51 AM CDT Temperature 36.6 C (97.9 F) 07/10/2024 8:51 AM CDT Respiratory Rate 16 07/10/2024 8:51 AM CDT [...] 04/10/2018 04/10/2017 COVID-19 vaccine series ( season) 2024 Influenza for age 50-64 07/27/2024 Pap test for age 21-65 09/06/2025 , 09/06/2022, 06/26/2017, Additional history exists Pneumococcal series for age 6-64 Aged Out No longer eligible based on patient's age to complete this topic Medical Devices Implanted Type Area Restaurant Shift Leader Device Identifier Shelf Expiration Date Model / Serial / Lot Bone 1-4mm 60cc Medtronic Fine Canclls Freeze Dried - [id number] Implanted:Qty: 1 on 07/08/2024 by Milton Lima MD at [facility] Medtronic Spine/Ortho [id number] 06/14/2028 [id number] / [id number] / Spacer Lmbr 9x22mm Capstone Tlif Titnm Coating - [id number] Implanted:Qty: 1 on 07/08/2024 by Milton Lima MD at [facility] N/A: Spine Medtronic Spine/Ortho [id number] / / 10PM Set Screw Lmbr Ant 5.5mm Solera Break Off - [id number] Implanted:Qty: 4 on 07/08/2024 by Milton Lima MD at [facility] N/A: Spine Medtronic Spine/Ortho [id number] / / Derek Lmbr 30x5.5mm Solera 5.5/6 Cvd Titnm - [id number] Implanted:Qty: 2 on 07/08/2024 by Milton Lima MD at [facility] N/A: Spine Medtronic Spine/Ortho [id number] / / Screw Lmbr Post 6.5x45mm Solera 5.5/6 Va Cocr - [id number] Implanted:Qty: 2 on 07/08/2024 by Milton Lima MD at [facility] N/A: Spine Medtronic Spine/Ortho [id number] / / Screw Lmbr Post 6.5x50mm Solera 5.5/6 Va Cocr - [id number] Implanted:Qty: 2 on 07/08/2024 by Milton Lima MD at [facility] N/A: Spine Medtronic Spine/Ortho [id number] / / Procedures Procedure Name Priority Date/Time Associated Diagnosis Comments HPV HIGH RISK Routine 09/06/2022 7:30 AM CDT from Last 3 Months or Most Recently Relevant to Health Maintenance Results * HPV HIGH RISK (09/06/2022 7:30 AM CDT) TYPE 16 Negative Negative 09/08/2022 2:02 PM CDT [facility] TYPE 18 Negative Negative 09/08/2022 2:02 PM CDT [facility] OTHER HIGH RISK TYPES Negative Negative 09/08/2022 2:02 PM CDT [facility] Other (Cervical/Vagina l) 09/06/2022 7:30 AM CDT 09/07/2022 9:04 AM CDT Narrative [facility] - 09/08/2022 2:02 PM CDT HPV types 16, 18, 31, 33, 35, 39, 45, 51, 52, 56, 58, 59, 66 and 68 DNA were undetectable or below the pre-set threshold. Methodology: Libra Maia 4800 HPV Test Jessica Bray MD MICROBIOLOGY [facility] 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
--- OUTSIDE RECORDS SUMMARY | 2024-10-23 19:32 | XMS_ITS | Continuity of Care Document ---
Author Organization [facility] Address [address] [place] [address] Phone Care Team Providers Care Sleep Scientist Name Role Phone Clarence GIL, PhD, [place] [...] CALCIUM (unknown strength) Not Available - Active FLUOXETINE HCL (unknown strength) Not Available - Active IBUPROFEN (unknown strength) Not Available - Active Procedures Procedure Date Postop Followup Visit Postop Followup Visit TLIF - Includes PSF [...] Diagnoses Date Provider Providers Copied on Encounter [facility], [address], [place], [id number], [place] tel:[phone] [facility] Encounter for other specified surgical aftercare 4 Clarence Rose. [facility], [address] [facility], [place], [address], [place]. tel:[phone] Referring Provider: Davion Zaldivar [facility], [place], [address]. tel:[phone] [facility], [address], [place], [id number], [place] tel:[phone] [facility] Encounter for other specified surgical aftercare 4 Clarence Rose. [facility], [address], [place], [address], [place]. tel:[phone] Referring Provider: Davion Zaldivar, [facility] [address] [facility], [place], [address]. tel:[phone] [facility], [address], [place], [id number], [place] tel:[phone] [facility] No Information 4 Clarence Rose. [facility], [address], [place], [address], [place]. tel: [phone] [facility], [address], [place], [id number], [place] tel:[phone] [facility] No Information 4 Harpal Sinclair. [facility], [address], [place], [place], [id number] , [place]. tel:[phone] Referring Provider: Davion Zaldivar, [facility] [address] [facility], [place], [address]. tel:[phone] [facility], [address], [place], [id number], [place] tel:[phone] [facility] No Information 4 Clarence Rose. [facility], [address], [place], [address], [place]. tel:[phone] Referring Provider: Davion Zaldivar, [employer] [facility] [address] [facility], [place], [address]. tel:[phone] Office/Outpat ient Visit,Est, Mod [facility], [address], [place], [id number], [place] tel:[phone] [facility] Spinal stenosis, lumbar region with neurogenic claudication 4 Clarence Rose. [facility], [address], [place], [address], [place]. [phone] Referring Provider: Davion Zaldivar, [facility] [address] [facility], [place], [address]. [phone] Office/Outpat ient Visit,Est, Mod [facility], [address], [place], [id number], [place] tel:[phone] [facility] Spinal stenosis, lumbar region with neurogenic claudication 4 Clarence Rose. [facility], [address], [place], [address], [place]. [phone] Referring Provider: Davion Zaldivar, [employer] [address] [facility], [place], [address]. tel:[phone] Office/Outpat ient Visit,Est, Mod [facility], [address], [place], [id number], [place] tel:[phone] [facility] Spinal stenosis, lumbar region with neurogenic claudication 4 Clarence Rose. [facility], [address], [place], [address], [place]. [phone] Referring Provider: Davion Zaldivar, [employer] [facility], [place], [address]. tel:[phone] Office/Outpat ient Visit,Est, Low [facility], [address], [place], [id number], [place] tel:[phone] [facility] Low back pain 3 Clarence Rose. [facility], [address], [place], [address], [place]. [phone] Referring Provider: Davion Zaldivar, [employer] [address] [facility], [place], [address]. tel:[phone] [facility], [address], [place], [id number], [place] tel:[phone] [facility] No Information 3 Clarence Rose. [facility], [address], [place], [address], [place]. [phone] Referring Provider: Davion Zaldivar, [employer] [address] [facility], [place], [address]. tel:[phone] [facility], [address], [place], [id number], [place] tel:[phone] [facility] No Information 3 Clarence Rose. [facility], [address], [place], [address], [place]. tel:[phone] Referring Provider: Davion Zaldivar, [employer] [address] [facility], [place], [address]. tel:[phone] [facility], [address], [place], [id number], [place] tel:[phone] [facility] No Information 3 Harpal Sinclair. [facility], [address], [place], [place], [id number] , [place]. tel:[phone] Referring Provider: Davion Zaldivar [facility] [address] [facility], [place], [address]. tel:[phone] [facility], [address], [place], [id number], [place] tel:[phone] [facility] No Information 3 Clraence Rose. [facility], [address], [place], [address], [place]. tel:[phone] Referring Provider: Davion Zaldivar [employer] [address] [facility], [place], [address]. tel:[phone] OFFICE/OUTPAT IENT VISIT EST Phone [facility], [address], [place], [id number], [place] tel:[phone] [facility] No Information 2 Clarence Rose. [facility], [address], [place], [address], [place]. tel:[phone] Referring Provider: Davion Zaldivar [facility] [address] [facility], [place], [address]. tel:[phone] Office/Outpat ient Visit,NewDejan [facility], [address], [facility] [id number], [place] tel:[phone] [facility] Spinal stenosis, lumbar region with neurogenic claudication 2 Clarence Rose. [facility], [address], [place], [address], [place]. tel:[phone] Referring Provider: Davion Zaldivar, [facility] [address] [facility], [place], [address]. tel:[phone] Office/Outpat ient Visit,NewDejan [facility], [address], [place], [id number], [place] tel:[phone] [facility] Spinal stenosis of lumbosacral region 9 Harpal Sinclair. [facility], [address], [place], [place], [address] , [place]. tel:[phone] Referring Provider: Jessica Cowan, [address], [address]. tel:[phone] [facility], [address], [facility] [place], [id number], [place] tel:[phone] [facility] Low back pain 9 Clarence Rose. [facility], [address], [place], [address], [place]. tel:[phone] Family History Family Member Type Diagnosis Age At Onset No Information Payers Payer name Insurance type Covered republican ID Sam kirkpatrick(s) Екатеринаmartha MARBELLA [facility] 2021 CI [id number] Social History Type Description Quantity Date Captured Comments Alcohol Use Details Unknown Caffeine Use Details Unknown Tobacco Use Status No Information Smoking Status No Information Sex Female Vital Signs Date / Time: Height Weight BMI Pulse Rate Blood Pressure Temperature Respiratory Rate Body Surface Area Head Circumference Head Circ. Percentile Wt./William. Percentile BMI percentile Pulse Ox Inhaled Ox 9:22 AM 61.81 in 72.575 kg (160.00 lbs) 29.4 4 kg/m eter (2) Chief Complaint And Reason For Visit No Information Reason For Referral Reason For Referral No Information Plan Of Treatment Date Type Action Status Future Order: Radiology Order Me dial Branch Block Lumbar ([id number]), Ordered on: Ordered History Of Present Illness Encounter Date Complaint History Of Prese nt Illness No Information Functional Status Date Functional Assessmen t No Information Instructions Date Instruction Additional Infor mation No Information Assessments Type Assessment Date No Information Patient Care Teams Name Effective Dates (start - stop) Status Members No Information
== END 2024-10-22 14:29 | disposition home or self-care (01) ==
LOC: NFLDREF 10-23 19:30
PROVIDERS: PCP Family Medicine; Referring Provider Family Medicine; Visit Provider Internal Medicine
DX: R39.9 Unspecified symptoms and signs involving the genitourinary system (principal); N39.0 Urinary tract infection, site not specified
CPT/HCPCS: 87086

== ENCOUNTER 2024-11-10 07:59 | Outpatient (CLI) | payer MEDICAID, SELFPAY ==
--- NOTE | 2024-11-10 08:15 | CRLHL7_ITS ---
For Patients: As a result of the Century Cures Act, medical imaging exams and procedure reports are released immediately into your electronic medical record. You may view this report before your referring provider. If you have questions, please contact your health care provider. BILATERAL SCREENING MAMMOGRAM WITH COMPUTER-AIDED DETECTION AND TOMOSYNTHESIS TECHNIQUE: CC and MLO views were obtained. These mammographic images have been obtained using full-field digital technique. These mammographic images were interpreted with the benefit of computer-aided detection. Breast Tomosynthesis was used in this interpretation. COMPARISON FILM: 10/31/23, 07/27/20, 11/15/18. FINDINGS: There are scattered areas of fibroglandular density. IMPRESSION: There is no radiographic evidence for malignancy. ASSESSMENT: BI-RADS Category 1: Negative RECOMMENDATION: Routine screening mammogram in 1 year. A lay language report of this examination will be provided to the patient. Manish Villarreal M.D. Diagnostic Radiologist [email or web address] SP/Dictated by: Manish Villarreal MD @ 11/10/2024 10:21:00 AM (Electronically Signed)
== END 2024-11-10 08:00 | disposition home or self-care (01) ==
LOC: MAMMO 08:00
PROVIDERS: PCP Family Medicine; Visit Provider Family Medicine
DX: Z12.31 Encounter for screening mammogram for malignant neoplasm of breast (principal)
CPT/HCPCS: 77063; 77067

== ENCOUNTER 2025-09-01 07:54 | Outpatient (CLI) | payer OTHER, SELFPAY | END 2025-09-01 07:55 | disposition home or self-care (01) | LOC: NFLDREF 09-05 04:34 | PROVIDERS: PCP Family Medicine; Referring Provider Family Medicine; Visit Provider Family Medicine | DX: E78.5 Hyperlipidemia, unspecified (principal); Z79.1 Long term (current) use of non-steroidal anti-inflammatories (NSAID); R73.01 Impaired fasting glucose | CPT/HCPCS: 80053; 80061; 82306 ==